=== PATIENT | female | born 1935 | race Caucasian/White ===

== ENCOUNTER 2016-06-29 12:48 | Observation (INO) | payer MEDICARE, OTHER ==
[2016-06-29 13:55] LABS: CHLORIDE,CL 106 mEq/L (98-106); SODIUM,NA 140 mEq/L (136-145)
[2016-06-29] MEDS ORDERED: Sodium Chloride 0.9% 10 ML Syringe FLUSH PRN (15:13)
[2016-06-29] MEDS ORDERED: cefTRIAXone 1 GM Vial IVPUSH SCH (15:30)
[2016-06-29] MEDS ORDERED: Enoxaparin 30 MG/0.3 ML Syringe SUBCUT SCH (16:00)
[2016-06-29] MEDS: Simvastatin 20 MG Tab PO SCH (19:16)
[2016-06-29] MEDS: risperiDONE 0.25 MG Tab PO SCH (19:16)
[2016-06-30] MEDS: Metoprolol Succinate 25 MG Tab.ER PO SCH (07:37)
[2016-06-30] MEDS: Donepezil 5 MG Tab PO SCH (07:37)
[2016-06-30] MEDS: risperiDONE 0.25 MG Tab PO SCH ×2 (07:37→20:30)
[2016-06-30] MEDS: Multivitamin Tab PO SCH (07:38)
[2016-06-30] MEDS: Aspirin 81 MG Tab.EC PO SCH (07:38)
--- NOTE | 2016-06-30 10:59 | PN ---
DATE: 06/30/2016 S: Saima was admitted yesterday for aggressive behaviors at home and altered mental status. She likely has undiagnosed Alzheimer's dementia, which is becoming more prominent with some personality changes and occasional paranoid behavior. We put her in essentially to rule out any metabolic abnormalities. She did have a UTI on admit. She has been on Rocephin. She has not spiked any temps. Her vitals have been fine. O: GENERAL: She is pleasant and cooperative. is in the room with her and they are enjoying each others company with nice conversation. HEENT: Grossly benign. NECK: Supple. LUNGS: Appear clear. CARDIAC: Tones are regular. ABDOMEN: Nontender. EXTREMITIES: No edema is seen. ASSESSMENT: 1. ALTERED MENTAL STATUS, LIKELY ON AGITATED DEMENTIA. 2. URINARY TRACT INFECTION. P: I did start her on low dose of Aricept as well as low dose of Risperdal. I want to keep her until tomorrow and see how she responds to both, and she will be home tomorrow most likely. WILMER/CARLOS /[id number]
[2016-06-30] MEDS ORDERED: cefTRIAXone 1 GM Vial IVPUSH SCH ×2 (16:00→20:00)
[2016-06-30] MEDS ORDERED: Enoxaparin 30 MG/0.3 ML Syringe SUBCUT SCH (20:00)
[2016-06-30] MEDS: Simvastatin 20 MG Tab PO SCH (20:30)
[2016-07-01 07:49] VITALS: BP 151/90
[2016-07-01] MEDS: Aspirin 81 MG Tab.EC PO SCH (08:46)
[2016-07-01] MEDS: Multivitamin Tab PO SCH (08:46)
[2016-07-01] MEDS: risperiDONE 0.25 MG Tab PO SCH (08:47)
[2016-07-01] MEDS: Donepezil 5 MG Tab PO SCH (08:47)
[2016-07-01] MEDS: Metoprolol Succinate 25 MG Tab.ER PO SCH (08:47)
--- NOTE | 2016-07-04 07:51 | DISCH ---
ADMISSION DIAGNOSES: 1. Acute urinary tract infection. 2. Altered mental status likely agitated dementia. DISCHARGE DIAGNOSIS: 1. ACUTE URINARY TRACT INFECTION. 2. ALTERED MENTAL STATUS LIKELY AGITATED DEMENTIA. HISTORY: The patient is an 81-year-old who presented after we actually had local authorities go get her at her home. Her reported that she was being violent, very confused, and forgetful, having a hard time remembering things, and having a lot of paranoid behaviors regarding him. He actually presented with some bruising and scratches. He had not been staying at home for the last three days. She was very pleasant and cooperative in my office. Denied or did not remember any incidences of violence or any confrontations with her . We did a full workup on her including lab, imaging, EKG, and CT of the head, other than a UTI everything came back normal. She did score 27/30 on her Mini-Mental. We elected to put her in the hospital and start her on Aricept and low-dose Risperdal along with treating her UTI. HOSPITAL COURSE: The patient has been stable while here. She has had no vital sign of irregularities, fevers, etc. She is very forgetful. The last night she did get little agitated, because she wanted go home and was up and ambulating around the hospital, when I talked with her this morning she does not remember her being here talking to her, she is very suspicious why he is not here. She feels like she is staying in a hotel room and wants to know if she has to pay because she does not have her credit card here. When we redirected and corrected her, she says of course and covers for that very gracefully. Adult Protective Services have been made aware of her situation and the and we made it clear that we feel that they need to be involved. We are going to call them again today as we have really no other acute reason to keep her in the hospital. We are going to send her home on Aricept 5 mg a day and a low dose of Risperdal 0.25 b.i.d., and we will see how she responds. I will have a long conversation with her and if she starts to become agitated or violent, he needs to call local authority and/or family members. At this point, we are not getting a significant amount of family support to help us with this situation other than to say that father can just stay with them if needed. COMPLICATIONS: During the stay none. CONSULTATIONS: Social work. DISPOSITION: Discharged home with . RODGER /[id number]
== END 2016-07-01 10:15 | disposition home or self-care (01) ==
LOC: CC.MS 12:48 → CC.FCMC 12:48 → CC.MS 14:38 → UNDOADMOB 14:38 → CC.MS 15:13
PROVIDERS: ADMIT Family Medicine; ATTEND Family Medicine
DX: R41.82 Altered mental status, unspecified (principal); N39.0 Urinary tract infection, site not specified; F03.90 Unspecified dementia, unspecified severity, without behavioral disturbance, psychotic disturbance, mood disturbance, and anxiety; R53.83 Other fatigue; R94.31 Abnormal electrocardiogram [ECG] [EKG]; E78.5 Hyperlipidemia, unspecified; K21.9 Gastro-esophageal reflux disease without esophagitis; I10 Essential (primary) hypertension; M81.0 Age-related osteoporosis without current pathological fracture; G47.30 Sleep apnea, unspecified; F17.210 Nicotine dependence, cigarettes, uncomplicated; Z88.6 Allergy status to analgesic agent; Z79.899 Other long term (current) drug therapy; Z98.1 Arthrodesis status; Z90.49 Acquired absence of other specified parts of digestive tract; Z98.890 Other specified postprocedural states
CPT/HCPCS: 36415; 70450; 71020; 80053; 81001; 82607; 84443; 85025; 86140; 87086; 87088; 87186; 93005; 93010; 96372; 96374; 96376; 99217; 99220; 99226; A9270; G0378; J0696; J1650

== ENCOUNTER 2021-08-04 15:55 | Inpatient (IN) | payer MEDICARE, OTHER, MEDICAID ==
[2021-08-04] MEDS ORDERED: Sodium Chloride 0.9% 10 ML Syringe FLUSH PRN (16:29)
[2021-08-04] MEDS ORDERED: Sodium Chloride 0.9% 500 ML IV SCH (16:30)
[2021-08-04] MEDS ORDERED: cefTRIAXone 1 GM Vial IVPUSH ONE (16:59)
[2021-08-04] MEDS ORDERED: Bisacodyl 5 MG Tab PO PRN (18:10)
[2021-08-04] MEDS ORDERED: Ondansetron 4 MG/2 ML SDV IV PRN (18:10)
[2021-08-04] MEDS ORDERED: Ondansetron 4 MG Tab.DIS PO PRN (18:10)
[2021-08-04] MEDS ORDERED: Acetaminophen 325 MG Tab PO PRN ×2 (18:10)
[2021-08-04] MEDS: Lactated Ringers 1,000 ML IV SCH ×2 (18:19→22:33)
[2021-08-04] MEDS: Metoprolol Tartrate 25 MG Tab PO SCH (19:58)
[2021-08-04] MEDS: Mirtazapine 15 MG Tab PO SCH (19:58)
[2021-08-04] MEDS: risperiDONE 0.25 MG Tab PO SCH (19:58)
[2021-08-04] MEDS ORDERED: Take Home: LORazepam 0.5 MG Tab, 2 Tab Pack PO SCH (20:00)
[2021-08-04] MEDS ORDERED: Non-Formulary Medication 1 Each (Melatonin [Melatonin] 5 MG Tablet) PO SCH (20:00)
[2021-08-05] MEDS: Lactated Ringers 1,000 ML IV SCH ×3 (06:44→18:54)
[2021-08-05] MEDS: Polyethylene Glycol 3350 Powder 17 GM Packet PO SCH (07:50)
[2021-08-05] MEDS: Metoprolol Tartrate 25 MG Tab PO SCH ×2 (07:51→19:36)
[2021-08-05] MEDS: risperiDONE 0.25 MG Tab PO SCH ×2 (07:51→19:36)
[2021-08-05] MEDS ORDERED: Enoxaparin 30 MG/0.3 ML Syringe SUBCUT SCH (12:00)
[2021-08-05] MEDS: Heparin Sodium 5,000 Units/ML Vial SUBCUT SCH ×2 (12:26→19:34)
[2021-08-05] MEDS: cefTRIAXone 1 GM Vial IVPUSH SCH (17:00)
[2021-08-05] MEDS: Mirtazapine 15 MG Tab PO SCH (19:36)
[2021-08-06] MEDS: Lactated Ringers 1,000 ML IV SCH ×3 (02:48→18:46)
[2021-08-06] MEDS: risperiDONE 0.25 MG Tab PO SCH ×2 (07:42→19:41)
[2021-08-06] MEDS: Heparin Sodium 5,000 Units/ML Vial SUBCUT SCH ×2 (07:42→19:40)
[2021-08-06] MEDS: Metoprolol Tartrate 25 MG Tab PO SCH ×2 (08:18→19:41)
[2021-08-06] MEDS: Polyethylene Glycol 3350 Powder 17 GM Packet PO SCH (08:18)
[2021-08-06] MEDS: cefTRIAXone 1 GM Vial IVPUSH SCH (16:51)
[2021-08-06] MEDS: Mirtazapine 15 MG Tab PO SCH (19:40)
[2021-08-07] MEDS: Lactated Ringers 1,000 ML IV SCH (02:53)
[2021-08-07] MEDS: risperiDONE 0.25 MG Tab PO SCH ×2 (08:12→19:28)
[2021-08-07] MEDS: Heparin Sodium 5,000 Units/ML Vial SUBCUT SCH ×2 (08:12→19:27)
[2021-08-07] MEDS: Polyethylene Glycol 3350 Powder 17 GM Packet PO SCH (09:08)
[2021-08-07] MEDS: Metoprolol Tartrate 25 MG Tab PO SCH ×2 (09:08→19:54)
[2021-08-07] MEDS: cefTRIAXone 1 GM Vial IVPUSH SCH (17:15)
[2021-08-07] MEDS: Mirtazapine 15 MG Tab PO SCH (19:27)
[2021-08-08] MEDS: Heparin Sodium 5,000 Units/ML Vial SUBCUT SCH (07:40)
[2021-08-08] MEDS: risperiDONE 0.25 MG Tab PO SCH (07:41)
[2021-08-08] MEDS: Polyethylene Glycol 3350 Powder 17 GM Packet PO SCH (09:01)
[2021-08-08] MEDS: Metoprolol Tartrate 25 MG Tab PO SCH (09:01)
[2021-08-08 11:47] VITALS: PULSE 79
[2021-08-08] MEDS ORDERED: cefTRIAXone 1 GM Vial IVPUSH SCH (12:00)
[2021-08-08 12:33] VITALS: BP 119/63
== END 2021-08-08 13:15 | disposition home or self-care (01) | DRG 872 ==
LOC: SUPCPDRO 15:55 → CC.ED 15:55 → CC.MS 17:00 → UNDOADMIN 17:00 → CC.MS 17:56
PROVIDERS: ADMIT Nurse Practitioner Family; ATTEND Nurse Practitioner Family
DX: A41.9 Sepsis, unspecified organism (principal); N17.9 Acute kidney failure, unspecified; E87.0 Hyperosmolality and hypernatremia; N30.01 Acute cystitis with hematuria; E87.2 Acidosis; Z51.5 Encounter for palliative care; R65.20 Severe sepsis without septic shock; D72.829 Elevated white blood cell count, unspecified; E87.1 Hypo-osmolality and hyponatremia; F03.90 Unspecified dementia, unspecified severity, without behavioral disturbance, psychotic disturbance, mood disturbance, and anxiety; E86.0 Dehydration; R40.1 Stupor; G30.9 Alzheimer's disease, unspecified; F02.80 Dementia in other diseases classified elsewhere, unspecified severity, without behavioral disturbance, psychotic disturbance, mood disturbance, and anxiety; G89.29 Other chronic pain; M54.9 Dorsalgia, unspecified; Z96.659 Presence of unspecified artificial knee joint; Z79.899 Other long term (current) drug therapy; Z88.5 Allergy status to narcotic agent; Z87.440 Personal history of urinary (tract) infections
CPT/HCPCS: 36415; 51702; 80048; 80053; 81001; 83605; 85025; 86140; 87040; 87086; 87088; 87186; 96374; 99223; 99232; 99233; 99239; 99285-25; A9270-GY; J0696; J1644; J7040; J7120